=== PATIENT | female | born 1940 | race Caucasian/White ===

== ENCOUNTER 2024-01-12 09:22 | Outpatient (CLI) | payer MEDICARE, SELFPAY | END 2024-01-12 09:23 | disposition home or self-care (01) | LOC: AMB 01-21 16:07 | PROVIDERS: PCP Family Medicine; Visit Provider Emergency Medicine Emergency Medical Services | DX: M79.604 Pain in right leg (principal); M62.81 Muscle weakness (generalized) | CPT/HCPCS: A0425; A0427 ==

== ENCOUNTER 2024-01-28 11:36 | Outpatient (CLI) | payer MEDICARE, SELFPAY | END 2024-01-28 11:37 | disposition home or self-care (01) | LOC: AMB 02-02 19:56 | PROVIDERS: PCP Family Medicine; Visit Provider Family Medicine | DX: R53.1 Weakness (principal) | CPT/HCPCS: A0425; A0427 ==